=== PATIENT | female | born 1975 | race Caucasian/White ===

== ENCOUNTER → 2019-04-21 | Outpatient (CLI) | payer BC, SELFPAY ==
[2019-03-30 16:37] VITALS: BMI 35.2
[2019-04-21 21:11] LABS: Thyroid Stim Hormone (TSH) 0.94 uIU/mL (0.358-3.74)
[2019-04-22 13:21] VITALS: BMI 35.2
== END | disposition home or self-care (01) ==
LOC: LABSPEC 04-22 15:21
PROVIDERS: Visit Provider Nurse Practitioner
DX: E03.9 Hypothyroidism, unspecified (principal)
CPT/HCPCS: 84443

== ENCOUNTER → 2020-06-05 | Outpatient (CLI) | payer BC, SELFPAY ==
[2020-06-05 16:14] VITALS: BMI 34.9
[2020-06-05 22:40] LABS: Thyroid Stim Hormone (TSH) 0.01 uIU/mL (0.358-3.74)
== END | disposition home or self-care (01) ==
PROVIDERS: PCP Nurse Practitioner; Visit Provider Nurse Practitioner
DX: E03.9 Hypothyroidism, unspecified (principal)
CPT/HCPCS: 84443

== ENCOUNTER → 2020-08-30 | Outpatient (CLI) | payer OTHER, SELFPAY ==
[2020-06-05 16:14] VITALS: BMI 34.9
[2020-08-30 22:32] LABS: Thyroid Stim Hormone (TSH) 0.09 uIU/mL (0.358-3.74)
== END | disposition home or self-care (01) ==
PROVIDERS: PCP Nurse Practitioner; Referring Provider Nurse Practitioner; Visit Provider Nurse Practitioner
DX: E03.8 Other specified hypothyroidism (principal); E06.3 Autoimmune thyroiditis
CPT/HCPCS: 84443

== ENCOUNTER → 2022-04-21 | Outpatient (CLI) | payer BC, SELFPAY ==
--- NOTE | 2022-04-21 13:53 | ECHOD_ITS ---
Reason For Study: HTN Procedure This was a 2D Doppler, Color Flow transthoracic echocardiogram. Exam performed in department. Left Ventricle Normal size and thickness. The left ventricular ejection fraction is 65 %. Normal diastololic function. Right Ventricle Normal right ventricle. Atria The left and right atria are normal. Mitral Valve The mitral valve is structurally normal. No prolapse or stenosis seen. Tricuspid Valve Trivial tricuspid valve insufficiency. Normal pulmonary artery pressure. Aortic Valve Trisinus/trileaflet aortic valve. Trivial aortic valve insufficiency. Pulmonic Valve The pulmonic valve is not well visualized. Trivial eccentric pulmonic valve insufficiency. Great Vessels Normal sized aortic root. Pericardium/Pleural No pericardial effusion. MMode/2D Measurements & Calculations LVIDd: 4.2 cm IVSd: 0.98 cm Ao root diam: 3.5 cm LVIDs: 3.5 cm LVPWd: 0.85 cm LA dimension: 3.2 cm RVDd: 3.0 cm FS: 17.1 % LAV(MOD-bp): 25.4 ml LA A4 area: 12.0 cm2 RA A4 area: 11.1 cm2 LAV(MOD-bp) Indexed: 13.7 ml/m2 LAV(MOD-sp2): 24.9 ml LAV(MOD-sp4): 24.5 ml Time Measurements MV dec time: 0.20 sec Doppler Measurements & Calculations MV E max triston: 68.7 cm/sec Lat Peak E' Triston: 20.5 cm/sec Med Peak E' Triston: 9.0 cm/sec MV A max triston: 75.2 cm/sec E/E' lat: 3.4 E/E' med: 7.6 MV E/A: 0.91 MV V2 max: 74.0 cm/sec MV dec slope: 368.4 cm/sec2 Ao V2 max: 127.6 cm/sec MV max P.2 mmHg Ao max P.5 mmHg MV V2 mean: 43.7 cm/sec Ao V2 mean: 87.4 cm/sec MV mean P.89 mmHg Ao mean P.6 mmHg MV V2 VTI: 20.2 cm Ao V2 VTI: 25.3 cm AV (velocity ratio): 0.94 AI max triston: 425.7 cm/sec LV V1 max: 120.0 cm/sec PA V2 max: 96.4 cm/sec AI max P.5 mmHg LV V1 max P.8 mmHg PA V2 mean: 72.7 cm/sec LV V1 mean P.1 mmHg AI dec slope: 267.2 cm/sec2 LV V1 mean: 82.2 cm/sec AI P1/2t: 466.5 msec LV V1 VTI: 23.7 cm TR max triston: 247.2 cm/sec TR max P.4 mmHg ECHO/Echo Complete Interpretation Summary The left ventricular ejection fraction is 65 %. Ordering Physician: Raysa Tran Referring Physician: Raysa Tran Performed By: Acosta Anthony RCS
== END | disposition home or self-care (01) ==
LOC: CVS 13:50
PROVIDERS: PCP Nurse Practitioner; Referring Provider Internal Medicine Cardiovascular Disease; Visit Provider Internal Medicine Cardiovascular Disease
DX: I10 Essential (primary) hypertension (principal); R00.0 Tachycardia, unspecified
CPT/HCPCS: 93306

== ENCOUNTER → 2022-04-25 | Outpatient (CLI) | payer BC, SELFPAY ==
[2022-04-25 11:51] LABS: Anion Gap 9 (5-15); BUN 10 mg/dL (7-18); BUN/Creat Ratio 9.3 RATIO (10-20); Calcium,Total 9.3 mg/dL (8.5-10.1); Chloride 100 mmol/L (98-107); Cholesterol 214 mg/dL (200); Creatinine, Serum 1.07 mg/dL (0.55-1.02); EST Glomerular Filtration Rate 59 mL/min (>60); Est Glom Filt Rate - Afr Amer 71 mL/min (>60); Glucose 112 mg/dL (74-106); High Density Lipoprotein 70 mg/dL; Potassium 3.2 mmol/L (3.5-5.1); Sodium Level 137 mmol/L (136-145); Triglycerides 113 mg/dL; Very Low Density Lipoprotein 23 mg/dL (5-40)
== END | disposition home or self-care (01) ==
LOC: LAB 10:55
PROVIDERS: PCP Nurse Practitioner; Referring Provider Internal Medicine Cardiovascular Disease; Visit Provider Internal Medicine Cardiovascular Disease
DX: I10 Essential (primary) hypertension (principal); R00.2 Palpitations; E78.00 Pure hypercholesterolemia, unspecified
CPT/HCPCS: 36415; 80048; 80061

== ENCOUNTER → 2022-04-29 | Outpatient (CLI) | payer BC, SELFPAY ==
[2022-04-29 12:57] LABS: Anion Gap 7 (5-15); BUN 9 mg/dL (7-18); BUN/Creat Ratio 9.2 RATIO (10-20); Chloride 102 mmol/L (98-107); Creatinine, Serum 0.98 mg/dL (0.55-1.02); EST Glomerular Filtration Rate 65 mL/min (>60); Est Glom Filt Rate - Afr Amer 79 mL/min (>60); Glucose 110 mg/dL (74-106); Potassium 2.9 mmol/L (3.5-5.1); Sodium Level 139 mmol/L (136-145)
== END | disposition home or self-care (01) ==
PROVIDERS: PCP Nurse Practitioner; Referring Provider Internal Medicine Cardiovascular Disease; Visit Provider Internal Medicine Cardiovascular Disease
DX: E87.6 Hypokalemia (principal); R00.9 Unspecified abnormalities of heart beat; I10 Essential (primary) hypertension
CPT/HCPCS: 36415; 80048; 93225; 93226

== ENCOUNTER → 2022-05-05 | Outpatient (CLI) | payer BC, SELFPAY ==
[2022-05-05 16:03] LABS: Anion Gap 9 (5-15); BUN 11 mg/dL (7-18); BUN/Creat Ratio 10.9 RATIO (10-20); Calcium,Total 9.3 mg/dL (8.5-10.1); Chloride 102 mmol/L (98-107); Creatinine, Serum 1.01 mg/dL (0.55-1.02); EST Glomerular Filtration Rate 63 mL/min (>60); Est Glom Filt Rate - Afr Amer 76 mL/min (>60); Glucose 95 mg/dL (74-106); Potassium 3.2 mmol/L (3.5-5.1); Sodium Level 143 mmol/L (136-145)
== END | disposition home or self-care (01) ==
LOC: LAB 13:29
PROVIDERS: PCP Nurse Practitioner; Referring Provider Internal Medicine Cardiovascular Disease; Visit Provider Internal Medicine Cardiovascular Disease
DX: I10 Essential (primary) hypertension (principal); E87.6 Hypokalemia
CPT/HCPCS: 36415; 80048

== ENCOUNTER → 2022-05-12 | Outpatient (CLI) | payer BC, SELFPAY ==
[2022-05-12 13:58] LABS: Anion Gap 7 (5-15); BUN 11 mg/dL (7-18); BUN/Creat Ratio 12.7 RATIO (10-20); Chloride 108 mmol/L (98-107); Creatinine, Serum 0.87 mg/dL (0.55-1.02); EST Glomerular Filtration Rate 75 mL/min (>60); Est Glom Filt Rate - Afr Amer 91 mL/min (>60); Glucose 70 mg/dL (74-106); Potassium 3.9 mmol/L (3.5-5.1); Sodium Level 140 mmol/L (136-145)
== END | disposition home or self-care (01) ==
LOC: LAB 12:12
PROVIDERS: PCP Nurse Practitioner; Referring Provider Internal Medicine Cardiovascular Disease; Visit Provider Internal Medicine Cardiovascular Disease
DX: E87.6 Hypokalemia (principal)
CPT/HCPCS: 36415; 80048

== ENCOUNTER → 2022-05-22 | Outpatient (CLI) | payer BC, SELFPAY ==
[2022-05-22 15:36] LABS: Potassium 3.8 mmol/L (3.5-5.1)
== END | disposition home or self-care (01) ==
LOC: LAB 13:39
PROVIDERS: PCP Nurse Practitioner; Referring Provider Internal Medicine Cardiovascular Disease; Visit Provider Internal Medicine Cardiovascular Disease
DX: E87.6 Hypokalemia (principal)
CPT/HCPCS: 36415; 84132

== ENCOUNTER → 2022-07-16 | Outpatient (CLI) | payer BC, SELFPAY ==
[2022-07-16 11:57] LABS: Anion Gap 6 (5-15); BUN 13 mg/dL (7-18); Calcium,Total 8.9 mg/dL (8.5-10.1); Chloride 107 mmol/L (98-107); EST Glomerular Filtration Rate 64 mL/min (>60); Est Glom Filt Rate - Afr Amer 77 mL/min (>60); Glucose 95 mg/dL (74-106); Potassium 3.9 mmol/L (3.5-5.1); Sodium Level 139 mmol/L (136-145)
== END | disposition home or self-care (01) ==
LOC: LAB 11:11
PROVIDERS: PCP Nurse Practitioner; Referring Provider Internal Medicine Cardiovascular Disease; Visit Provider Internal Medicine Cardiovascular Disease
DX: I10 Essential (primary) hypertension (principal); E87.6 Hypokalemia
CPT/HCPCS: 36415; 80048

== ENCOUNTER → 2022-09-03 | Outpatient (CLI) | payer BC, SELFPAY ==
[2022-09-03 15:15] LABS: Erythrocyte Sedimentation Rate 7 mm/hr (0-30)
[2022-09-03 15:45] LABS: AST(SGOT) 12 U/L (15-37); Alanine Aminotransfer ALT/SGPT 28 U/L (13-56); Albumin, Serum 3.6 g/dL (3.2-5.0); Alkaline Phosphatase 64 U/L (45-117); Anion Gap 4 (5-15); BUN 9 mg/dL (7-18); BUN/Creat Ratio 8.7 RATIO (10-20); CPK Total, Creatine Kinase 61 U/L (26-192); Calcium,Total 9.1 mg/dL (8.5-10.1); Chloride 108 mmol/L (98-107); Creatinine, Serum 1.03 mg/dL (0.55-1.02); EST Glomerular Filtration Rate 61 mL/min (>60); Est Glom Filt Rate - Afr Amer 74 mL/min (>60); Globulin 3.7 g/dL (2.2-4.2); Glucose 85 mg/dL (74-106); Potassium 3.7 mmol/L (3.5-5.1); Protein, Total 7.3 g/dL (6.4-8.2); Sodium Level 139 mmol/L (136-145)
== END | disposition home or self-care (01) ==
LOC: LAB 14:26
PROVIDERS: PCP Nurse Practitioner; Referring Provider Internal Medicine Cardiovascular Disease; Visit Provider Internal Medicine Cardiovascular Disease
DX: I10 Essential (primary) hypertension (principal); R00.0 Tachycardia, unspecified; M79.10 Myalgia, unspecified site; R00.2 Palpitations; E06.3 Autoimmune thyroiditis; E87.6 Hypokalemia
CPT/HCPCS: 36415; 80053; 82550; 85652

== ENCOUNTER → 2023-04-06 | Outpatient (CLI) | payer BC, SELFPAY ==
--- OUTSIDE RECORDS SUMMARY | 2023-04-06 13:49 | XMS RPT_ITS | CCD ---
Author Name Unknown Address [address] [place] [address] Organization [facility] Care Team Providers Care Cafe Lead Name Role Phone Dav Ray Unavailable UnavailLatisha Moore Unavailable Unavaila JULIEN Fabian Unavailable Unavailable DAV RAY Unavailable Unavailable DAV RAY Unavailable Unavailable Dav Ray Primary Care Provider Dav Ray DO Primary Care Provider [phone] Luis A PUBLIC HEALTH SERVICE OFFICER.ON AIR PERSONALITY, Kenny L Primary Care Provide r Patel PUBLIC HEALTH SERVICE OFFICER.ON AIR PERSONALITY, Kenny L Primary Care Provide r Patel PUBLIC HEALTH SERVICE OFFICER.ON AIR PERSONALITY, Kenny L Primary Care Provide r KANWAL VASQUEZ Referring Unavailable PATEL, KENNY L Primary Care Unavailable KANWAL VASQUEZ Attending Unavailable PTAEL, KENNY L Primary Care Unavailable KEM ESTRADA Referring Unavailabl e PATEL, KENNY L Primary Care Unavailable PEDRO, KARMON Referring Unavailable PATEL, KENNY L Primary Care Unavailable PEDRO, KARLOUIE Attending Unavailable PEDRO, KARMON Referring Unavailable PATEL, KENNY L Primary Care Unavailable PEDRO, KARMON Referring Unavailable PATEL, KENNY L Primary Care Unavailable CHERY ALY Attending Unavail able PEDRO, KARMON Referring Unavailable PATEL, KENNY L Primary Care Unavailable Allergies Allergy Classification Reported Allergen(s) Allergy Type Date of Onset Reaction(s) Facility (2 sources) NSAIDs Propensity to adverse reactions to drug 8 Hives, Itching [facility] Work Phone: (18 sources) Non-steroidal anti-inflammato ry agent; Translations: [NSAIDS (NON-STEROIDAL ANTI-INFLAMMATO RY DRUG)] Drug Allergy 8 Unknown [facility] Medications Current Medications Medication Drug Class(es) Dates Sig (Normalized) Sig (Original) calcipotriene 0.05 mg/ml topical cream (2 sources) Vitamin D Analog calcipotriene (DOVONEX) 0.005 % cream Apply topically daily Apply topically 2 times daily. 0 Active polyethylene glycol 3350 862103 mg / potassium chloride 2980 mg / sodium bicarbonate 6720 mg / sodium chloride 5840 mg / sodium sulfate 19868 mg powder for oral solution (1 source) Osmotic Laxative Start: 11-29-2021 End: 11-29-2021 peg 3350-electrolytes (COLYTE) 240-22.72-6.72 -5.84 gram solution Indications: Special screening for malignant neoplasms, colon Take 4,000 mL by mouth one time only for 1 dose. 4000 mL 0 11/29/2021 11/29/2021 Active Completed/Discontinued Medications Medication Drug Class(es) Dates Sig (Normalized) Sig (Original) atorvastatin 20 mg oral tablet (17 sources) HMG-CoA Reductase Inhibitor Start: 10-08-2020 take 1 tablet by mouth once daily atorvastatin (LIPITOR) 20 mg tablet Indications: Pure hypercholesterolemia Take 1 tablet by mouth once daily. 90 tablet 3 10/08/2020 Active Problems Active Problems Problem Classification Problem Date Documented Date Episodic/Chronic Cardiac dysrhythmias (1 source) Palpitations; Translations: [Palpitations] Episodic Contraceptive and procreative management (6 sources) Patient encounter status; Translations: [Encounter for initial prescription of contraceptive pills] Episodic Disorders of lipid metabolism (17 sources) Hyperlipidemia; Translations: [Hyperlipidemia, unspecified] Onset: 10-07-2020 10-07-2020 Chronic Headache; including migraine (15 sources) Migraine with aura; Translations: [Migraine with aura, not intractable, without status migrainosus] Onset: 10-16-2021 Chronic Melanomas of skin (19 sources) Melanoma in situ by body site (clinical); Translations: [Melanoma in situ, unspecified] Onset: 01-04-2015 01-04-2015 Chronic Nutritional deficiencies (17 sources) Vitamin D deficiency; Translations: [Vitamin D deficiency, unspecified] Onset: 09-17-2020 09-17-2020 Chronic Other female genital disorders (4 sources) Abnormal uterine bleeding; Translations: [Abnormal uterine and vaginal bleeding, unspecified] Chronic Other female genital disorders (1 source) Abnormal uterine and vaginal bleeding, unspecified; Translations: [Abnormal uterine bleeding (AUB)] Onset: 04-04-2022 Chronic Other female genital disorders (1 source) Lesion of vulva; Translations: [Other specified noninflammatory disorders of vulva and perineum] Episodic Other nutritional; endocrine; and metabolic disorders (17 sources) Obese class I; Translations: [Obesity, unspecified] Onset: 09-17-2020 09-17-2020 Chronic Other screening for suspected conditions (not mental disorders or infectious disease) (4 sources) Breast finding ; Translations: [Inconclusive mammogram] Onset: 12-15-2022 Episodic Thyroid disorders (20 sources) Hypothyroidism; Translations: [Hypothyroidism, unspecified] Onset: 09-17-2020 09-17-2020 Chronic Unclassified (2 sources) Shortness of breath / R06.02(ICD-10) Onset: 02-16-2017 Unclassified (2 sources) Oth symptoms and signs involving the circ and resp systems / R09.89(ICD-10) Onset: 02-16-2017 Unclassified (1 source) Dense breast tissue; Translations: [Dense breast tissue] Onset: 12-15-2022 Past or Other Problems Problem Classification Problem Date Documented Date Episodic/Chronic Cancer of cervix (17 sources) Atypical squamous cells of undetermined significance on cervical Papanicolaou smear; Translations: [Atypical squamous cells of undetermined significance on cytologic smear of cervix (ASC-US)] Onset: 03-18-2017 04-09-2017 Episodic Genitourinary symptoms and ill-defined conditions (17 sources) Polyuria; Translations: [Polyuria] Onset: 09-17-2020 09-17-2020 Episodic Lymphadenitis (2 sources) Cervical lymphadenopathy Onset: 01-04-2015 01-04-2015 Episodic Results Test Name Value Interpretation Reference Range Facil ity Vital Signs Date Time Vital Sign Value Performing Clinician Franc valencia 04-24-2022 13:50-0500 Body weight 80.47 kg Kanwal Vasquez MD Work Phone: [facility] 04-24-2022 13:50-0500 Diastolic blood pressure 78 mm[Hg] Kanwal Vasquez MD Work Phone: [facility] 04-24-2022 13:50-0500 Systolic blood pressure 122 mm[Hg] Kanwal Vasquez MD Work Phone: [facility] 04-04-2022 13:55-0500 Body weight 82.64 kg Kanwal Vasquez MD Work Phone: [facility] 04-04-2022 13:55-0500 Diastolic blood pressure 78 mm[Hg] Kanwal Vasquez MD Work Phone: [facility] 04-04-2022 13:55-0500 Systolic blood pressure 110 mm[Hg] Kanwal Vasquez MD Work Phone: [facility] 11-29-2021 13:20-0400 Body height 159 cm Kanwal Vasquez MD Work Phone: [facility] 11-29-2021 13:20-0400 Body weight 82.19 kg Kanwal Vasquez MD Work Phone: [facility] 11-29-2021 13:20-0400 Diastolic blood pressure 80 mm[Hg] Kanwal Vasquez MD Work Phone: [facility] 11-29-2021 13:20-0400 Systolic blood pressure 120 mm[Hg] Kanwal Vasquez MD Work Phone: [facility] 10-15-2021 11:22-0400 Body weight 81.38 kg Kanwal Vasquez MD Work Phone: [facility] 10-15-2021 11:22-0400 Diastolic blood pressure 88 mm[Hg] Kanwal Vasquez MD Work Phone: [facility] 10-15-2021 11:22-0400 Systolic blood pressure 132 mm[Hg] Kanwal Vasquez MD Work Phone: [facility] Encounters Encounter Date Encounter Type Care Provider Facility Start: 12-16-2022 Documentation procedure Mammog rajeev Coordinator [facility] Start: 12-16-2022 Letter encounter Mammography Coordinator [facility] Department Start: 12-15-2022 End: 12-15-2022 ambulatory KANWAL VASQUEZ Facility:[facility] Start: 12-15-2022 End: 12-15-2022 Subsequent hospital visit by physician [facility] Mamm[facility] Procedures Date Procedure Procedure Detail Performing Clinician Start: 12-15-2022 Screening digital br east tomosynthesis bi Kanwal Vasquez MD Work Phone: Start: 04-24-2022 Urine test visual color cmprsn meths Kanwal Vasquez MD Work Phone: Start: 04-10-2022 Us pelvic nonobstetr ic real-time image complete Kanwal Vasquez MD Work Phone: Start: 12-24-2020 Mammography Kanwal paniagua MD Work Phone: Start: 11-30-2020 Lipid 1996 panel - S stephanie or Plasma Mammography Coordinator Start: 09-19-2020 Adult depression scr eening assessment Kanwal Vasquez MD Work Phone: Start: 03-31-2019 Radex shoulder compl ete minimum 2 views Kenny Patel Work Phone: Plan of Treatment Date Care Activity Detail Author Start: 11-29-2026 HPV TESTING HPV TESTING [facility] Start: 11-29-2026 PAP TESTING PAP TESTING [facility] Start: 11-30-2025 Lipid 1996 panel - S stephanie or Plasma Lipid Screening [facility] Start: 11-30-2025 LIPID SCREEN LIPID SCREEN [facility] Start: 04-04-2025 DIABETES SCREEN DIABETES SCREEN [facility] Start: 04-04-2025 Diabetes Screening Diabetes Screenin g [facility] Start: 12-16-2023 Mammography Mammogram Screening [facility] Start: 12-01-2023 DIABETES SCREEN DIABETES SCREEN [facility] Start: 06-29-2023 HPV TESTING HPV TESTING [facility] Start: 06-29-2023 PAP TESTING PAP TESTING [facility] Start: 05-12-2023 Lipid screen Lipid screen [facility] Work Phone: Start: 11-07-2022 Covid-19 Vaccine () Covid-19 Vaccine () [facility] Start: 11-07-2022 Influenza vaccination Influenza Vacc ine (#1) [facility] Start: 04-04-2022 End: 04-04-2023 PELVIC US WHI PELVIC US WHI Anc Imaging Routine Abnormal uterine bleeding (AUB) Expected: 04/04/2022, Expires: 04/04/2023 [facility] Work Phone: Payers Date Payer Category Payer Unknown [employer] PPO OOS [id number] 2021-Present [phone] [address] [place] [address] PPO [id number] 2021 Unknown [id number] 2018 Private Health Insurance [employer] A ETNA xxxxxxxxxx 2018-Present [phone] [address] [place] [address] xxxxxxxxxx [id number] Private Health Insurance [id number] Social History Date Type Detail Facility Start: 05-11-2018 Tobacco smoking stat us [facility] Former smoker [facility] Work Phone: History of tobacco use Cigarette Smoker S [facility] Work Phone: Start: 05-11-2018 End: 04-24-2022 Alcohol intake Current drinker of alcohol (finding) [facility] Work Phone: Start: 01-04-2015 Alcohol Comment occasional [facility] Work Phone: Sex Assigned At Not on file [facility] Work Phone: Start: 01-04-2015 Alcohol Comment occasional [facility] [employer] Work Phone: Start: 10-15-2021 [facility] tobacco [facility] Start: 10-15-2021 Tobacco use and exposure Smokeless tobacco non-user [facility] Start: 03-11-2017 History SDOH Alcohol Comment socially [facility] Start: 1975 Sex Assigned At Female [facility] Start: 10-05-2021 End: 10-15-2021 Exposure to SARS-CoV-2 (event) Not sure [facility] Start: 04-24-2022 End: 12-15-2022 History of Social function [facility] Start: 04-24-2022 End: 12-15-2022 Tobacco use panel [facility] National Score (1-10 0), lower number is lower risk 50 [facility] Start: 09-15-2020 Gender identity Identifies as female gender (finding) [facility] Start: 09-15-2020 Sexual orientation Heterosexual (fin leana) [facility] Clinical Notes 01-04-2015 to 12-16-2022 Letter - Coordinator, Mammography - 12/16/2022 7:03 AM VIVIANTSLatisha vizcarra Mammo Tech - 12/15/2022 12:50 PM EDTTelephone Encounter - Christiane Dejesus RN - 04/29/2022 10:40 AM ESTPatient Instructions Note Date & Type Note Facility 12-16-2022 Miscellaneous Notes December 16, 2022 PID: [id number] Elise Kim [address] [place] [address] Dear Ms. Kim, We are pleased to inform you that the results of your recent breast imaging exam on 12/15/2022 are normal. Your mammogram demonstrates that you have dense breast tissue, which could hide abnormalities. Dense breast tissue, in and of itself, is a relatively common condition. Therefore, this information is not provided to cause undue concern; rather, it is to raise your awareness and promote discussion with your health care provider regarding the presence of dense breast tissue in addition to other risk factors. Early detection of cancer is very important. We also understand recommendations regarding breast cancer screening are controversial. Please discuss with your primary care provider which strategy is best for you and whether a mammogram is right for you. Your imaging studies and report will be kept on file at [facility] as part of your permanent medical record and are available for your continuing care. Thank you for allowing us to help in meeting your health care needs. Sincerely, Dr. Martino Interpreting Radiologist [facility] (Normal over 40) documented in this encounter [facility] 12-15-2022 Note HNO ID: [id number] Author: Latisha Perry Mammo Tech Service: ? Author Type: Finish Sander Type: Progress Notes Filed: 12/15/2022 1:17 PM Note Text: Radiology Service Progress Note PATIENT NAME: Elise Kim DATE OF SERVICE: December 15, 2022 TIME: 12:59 PM PATIENT IDENTITY VERIFICATION COMPLETED USING TWO (2) IDENTIFIERS: Name and Date of confirmed by patient verbally. FALL SCREENING: Has the patient had 2 falls in the last year or 1 fall with injury or currently using an Ambulatory Assistive Device (Walker, Cane, Wheelchair, Crutches, etc.)? No PATIENT GENDER DATA: Female. status: : No status: NO. PATIENT RELEVANT IMPLANT DATA REVIEWED: Not Applicable RADIOLOGY DEPARTMENT: Mammography PERIPHERAL IV DATA: Not applicable SIGNED BY: Dawna Villagomez December 15, 2022 12:59 PM [facility] 12-15-2022 History of Presen t illness Narrative Radiology Service Progress Note PATIENT NAME: Elise Kim DATE OF SERVICE: December 15, 2022 TIME: 12:59 PM PATIENT IDENTITY VERIFICATION COMPLETED USING TWO (2) IDENTIFIERS: Name and Date of confirmed by patient verbally. FALL SCREENING: Has the patient had 2 falls in the last year or 1 fall with injury or currently using an Ambulatory Assistive Device (Walker, Cane, Wheelchair, Crutches, etc.)? No PATIENT GENDER DATA: Female. status: : No status: NO. PATIENT RELEVANT IMPLANT DATA REVIEWED: Not Applicable RADIOLOGY DEPARTMENT: Mammography PERIPHERAL IV DATA: Not applicable SIGNED BY: Dawna Villagomez December 15, 2022 12:59 PM documented in this encounter [facility] 04-29-2022 Miscellaneous Notes Patient called in regards to MyChart refill request we received for Valtrex. Patient states she started with outbreak symptoms yesterday. Last seen in office on 04/24/22 for IUD insertion. Pharmacy is up to date, will only call patient back if there is a problem. Christiane Dejesus RN documented in this encounter [facility] 04-24-2022 Note HNO ID: [id number] Author: Kanwal Vasquez MD Service: ? Author Type: Physician Type: Progress Notes Filed: 04/24/2022 2:30 PM Note Text: I was present during the patient's physical exam by Dr. Vasquez. [facility] Elise presents today for EMB AND IUD insertion for dysmenorrhea, menstrual dysfunction. Patient's last menstrual period was 03/29/2022 (approximate). GC/chlamydia: Not done: no risk factors and/or patient declines screening test: negative Side effects including irregular bleeding were discussed with the patient. The patient understands that it should be removed in 8 years or sooner if the patient desires a . IUD source: office provided IUD lot #: [id number] Exp date: 06/06/24 UNIVERSAL PROTOCOL / SAFETY CHECKLIST Procedure to be Performed: Endometrial Biopsy and Intrauterine Device (IUD) insertion Mirena Sign In: A Moment of CARE was completed. Personnel directly involved with the procedure wore the appropriate PPE (Personal Protective Equipment). Patient/Surrogate Stated/Verified: PATIENT VERIFIED(optional for EMERGENT procedures): Patient name, Date of , Relevant allergies, and The intended procedure Time Out Communication: Intended patient and procedure match the source documents. Consent documented and matches the intended procedure. Implant(s) inserted: Correct implant(s) confirmed including size and side. and Expiration date(s) reviewed. Sign Out: SIGN OUT (optional for EMERGENT procedures): All specimen containers correctly labeled. All instruments, equipment, possible retained foreign bodies accounted for. Post-procedure follow-up management communicated and Plan of Care Visit completed when applicable. PROCEDURE: EXTERNAL GENITALIA: Normal in appearance without lesions VAGINA: Normal in appearance without lesions PROCEDURE: The cervix was prepped with betadine. Anterior lip of cervix grasped with single toothed tenaculum. Cervix was dilated gently. Pipelle inserted into the uterus without difficulty (uterus sounded to 8.5cm) and endometrial biopsy obtained. Specimen labeled and sent to pathology. The uterus is Anteverted. Using sterile technique, the Mirena IUD was inserted. String was cut to 3cm from the external os of the cervix. Hemostasis obtained. Patient tolerated procedure well. PLAN: Patient was advised to observe for signs and symptoms of infection including but not limited to fever, malodorous vaginal discharge and/or pain. The patient was told to check the string monthly for accurate placement. Bleeding expectations were reviewed. Follow up for next annual exam or sooner as needed. Kanwal Vasquez MD [facility] 04-24-2022 History of Presen t illness Narrative I was present during the patient's physical exam by Dr. Vasquez. Jennifer Chasehel presents today for EMB & IUD insertion for dysmenorrhea, menstrual dysfunction. Patient's last menstrual period was 03/29/2022 (approximate). GC/chlamydia: Not done: no risk factors and/or patient declines screening test: negative Side effects including irregular bleeding were discussed with the patient. The patient understands that it should be removed in 8 years or sooner if the patient desires a . IUD source: office provided IUD lot #: [id number] Exp date: 06/06/24 UNIVERSAL PROTOCOL / SAFETY CHECKLIST Procedure to be Performed: Endometrial Biopsy and Intrauterine Device (IUD) insertion Mirena Sign In: A Moment of CARE was completed. Personnel directly involved with the procedure wore the appropriate PPE (Personal Protective Equipment). Patient/Surrogate Stated/Verified: PATIENT VERIFIED(optional for EMERGENT procedures): Patient name, Date of , Relevant allergies, and The intended procedure Time Out Communication: Intended patient and procedure match the source documents. Consent documented and matches the intended procedure. Implant(s) inserted: Correct implant(s) confirmed including size and side. and Expiration date(s) reviewed. Sign Out: SIGN OUT (optional for EMERGENT procedures): All specimen containers correctly labeled. All instruments, equipment, possible retained foreign bodies accounted for. Post-procedure follow-up management communicated and Plan of Care Visit completed when applicable. PROCEDURE: EXTERNAL GENITALIA: Normal in appearance without lesions VAGINA: Normal in appearance without lesions PROCEDURE: The cervix was prepped with betadine. Anterior lip of cervix grasped with single toothed tenaculum. Cervix was dilated gently. Pipelle inserted into the uterus without difficulty (uterus sounded to 8.5cm) and endometrial biopsy obtained. Specimen labeled and sent to pathology. The uterus is Anteverted. Using sterile technique, the Mirena IUD was inserted. String was cut to 3cm from the external os of the cervix. Hemostasis obtained. Patient tolerated procedure well. PLAN: Patient was advised to observe for signs and symptoms of infection including but not limited to fever, malodorous vaginal discharge and/or pain. The patient was told to check the string monthly for accurate placement. Bleeding expectations were reviewed. Follow up for next annual exam or sooner as needed. Kanwal Vasquez MD documented in this encounter [facility] 04-24-2022 Instructions Jennifer Main Ma - 04/24/2022 1:41 PM EST POST IUD INSTRUCTIONS You may have irregular bleeding during the first 3 months of use. You may have mild-severe cramping for the next 48 hours. You may use over the counter medication (Motrin, Tylenol) as needed. Your IUD must be removed or replaced based on the following table: IUD Type Removed or replaced within: Ana 3 years Kyleena 5 years Mirena 8 years Paragard 10 years Call my office for signs/symptoms of infection such as severe cramping, fever, or unusual bleeding. Check for string placement as instructed by your doctor. If you have any additional questions, please contact the office. documented in this encounter [facility] 04-04-2022 Note HNO ID: [id number] Author: Kanwal Vasquez MD Service: ? Author Type: Physician Type: Progress Notes Filed: 04/04/2022 2:55 PM Note Text: Music Teacher offered: Patient declines.' Elise Kim is a 46 year old female who presents for problem visit. HPI: Patient presents with irregular menses. She reports 2 menses in February. The 2nd lasted into March. Menses started again 19 days later which was this past Thursday. She is passing blood clots but states flow isn't really heavy. Also she feels bloating, cramping AND occ sharp pain. Also she feels that her heart is racing. Denies CP/SOB. Patient takes the micronor at the same time every day. OB History T0 L2 SAB0 IAB0 Ectopic0 Multiple0 Live Births0 Principal Clerk History LMP: 03/29/2022 (Approximate), Having periods Age at Menarche: Age at First : Age at Menopause: Principal Clerk History Comments: Sexual Activity: Yes; Male Contraception: No contraception data on record PAST MEDICAL HISTORY Diagnosis Date Herpes, genital Hypothyroid Left cervical lymphadenopathy 01/04/2015 Thyroid with heterogeneity but no nodules on US in 01/2015. Melanoma in situ (HCC) Right Rib cage Migraines No past surgical history on file. FAMILY HISTORY Problem Relation Age of Onset Hypertension Mother Thyroid Mother Hypertension Sister Thyroid Sister Thyroid Sister Thyroid Sister Breast Cancer No Family History Ovarian cancer No Family History Uterine Cancer No Family History Social History Tobacco Use Smoking status: Never Smokeless tobacco: Never Vaping Use Vaping Use: Never used Substance Use Topics Alcohol use: Yes Comment: socially Drug use: No Current Outpatient Medications Medication Sig levothyroxine (LEVOXYL) 137 mcg tablet Take 1 tablet by mouth once daily. valACYclovir (VALTREX) 1 gram Take 1 tablet by mouth once daily. cholecalciferol, vitamin D3, (VITAMIN D3) 100 mcg (4,000 unit) cap Take 1 capsule by mouth once daily. loratadine 10 mg cap Take 1 tablet by mouth once daily. magnesium oxide 400 mg magnesium cap Take 1 tablet by mouth daily at bedtime. montelukast (SINGULAIR) 10 mg tablet Take 10 mg by mouth once daily. Norethindrone, Contraceptive, (ORTHO MICRONOR) 0.35 mg tablet Take 1 tablet by mouth once daily. atorvastatin (LIPITOR) 20 mg tablet Take 1 tablet by mouth once daily. No current facility-administered medications for this visit. Allergies As of Date: 04/04/2022 Allergen Noted Reaction NSAIDS (NON-STEROIDAL ANTI-INFLAM*10/12/2017 Unknown Fully Assessed 04/04/2022 Allergies and current medication updated:Yes EXAM: BP 110/78 Wt 182 lb 3.2 oz (82.6kg) LMP 03/29/2022 GENERAL: pleasant, female in no apparent distress PELVIC: deferred ASSESSMENT AND PLAN: 46yo female with AUB AND heart palpitations Check pelvic US Discussed treatment options including Mirena IUD CBC AND CMP ordered Reviewed CP/SOB precautions Medical Decision Making: Problems: Moderate: New problem with uncertain prognosis Data: Unique test(s) ordered: 3+ Risk: Moderate: Drug management Medical Decision Making Level: 4 - Moderate Kanwal Vasquez MD [facility] 04-04-2022 History of Presen t illness Narrative Music Teacher offered: Patient declines.' Elise Kim is a 46 year old female who presents for problem visit. HPI: Patient presents with irregular menses. She reports 2 menses in February. The 2nd lasted into March. Menses started again 19 days later which was this past Thursday. She is passing blood clots but states flow isn't really heavy. Also she feels bloating, cramping & occ sharp pain. Also she feels that her heart is racing. Denies CP/SOB. Patient takes the micronor at the same time every day. OB History T0 L2 SAB0 IAB0 Ectopic0 Multiple0 Live Births0 Principal Clerk History LMP: 03/29/2022 (Approximate), Having periods Age at Menarche: Age at First : Age at Menopause: Principal Clerk History Comments: Sexual Activity: Yes; Male Contraception: No contraception data on record PAST MEDICAL HISTORY Diagnosis Date Herpes, genital Hypothyroid Left cervical lymphadenopathy 01/04/2015 Thyroid with heterogeneity but no nodules on US in 01/2015. Melanoma in situ (HCC) Right Rib cage Migraines No past surgical history on file. FAMILY HISTORY Problem Relation Age of Onset Hypertension Mother Thyroid Mother Hypertension Sister Thyroid Sister Thyroid Sister Thyroid Sister Breast Cancer No Family History Ovarian cancer No Family History Uterine Cancer No Family History Social History Tobacco Use Smoking status: Never Smokeless tobacco: Never Vaping Use Vaping Use: Never used Substance Use Topics Alcohol use: Yes Comment: socially Drug use: No Current Outpatient Medications Medication Sig levothyroxine (LEVOXYL) 137 mcg tablet Take 1 tablet by mouth once daily. valACYclovir (VALTREX) 1 gram Take 1 tablet by mouth once daily. cholecalciferol, vitamin D3, (VITAMIN D3) 100 mcg (4,000 unit) cap Take 1 capsule by mouth once daily. loratadine 10 mg cap Take 1 tablet by mouth once daily. magnesium oxide 400 mg magnesium cap Take 1 tablet by mouth daily at bedtime. montelukast (SINGULAIR) 10 mg tablet Take 10 mg by mouth once daily. Norethindrone, Contraceptive, (ORTHO MICRONOR) 0.35 mg tablet Take 1 tablet by mouth once daily. atorvastatin (LIPITOR) 20 mg tablet Take 1 tablet by mouth once daily. No current facility-administered medications for this visit. Allergies As of Date: 04/04/2022 Allergen Noted Reaction NSAIDS (NON-STEROIDAL ANTI-INFLAM*10/12/2017 Unknown Fully Assessed 04/04/2022 Allergies and current medication updated:Yes EXAM: BP 110/78 Wt 182 lb 3.2 oz (82.6kg) LMP 03/29/2022 GENERAL: pleasant, female in no apparent distress PELVIC: deferred ASSESSMENT AND PLAN: 46yo female with AUB & heart palpitations Check pelvic US Discussed treatment options including Mirena IUD CBC & CMP ordered Reviewed CP/SOB precautions Medical Decision Making: Problems: Moderate: New problem with uncertain prognosis Data: Unique test(s) ordered: 3+ Risk: Moderate: Drug management Medical Decision Making Level: 4 - Moderate Kanwal Vasquez MD documented in this encounter [facility] 12-16-2021 Miscellaneous Notes Patient does not want to schedule colonoscopy until late Spring / Summer of 2022, gave her our direct line. Cancelled request until time being. Please place a new order when patient is ready to schedule, thanks! DANICA 12/16 documented in this encounter [facility] 12-02-2021 Miscellaneous Notes [employer] message sent with alert if not read. Closed Call and tell to increase levothyroxine from 0.125 mg to 0.137 mg daily. Check TSH again in 6-8 weeks (in Epic for on or after 01/12/2022). Thanks. The following approved medication requests have been transmitted electronically. Requested Prescriptions Signed Prescriptions Disp Refills levothyroxine (LEVOXYL) 137 mcg tablet 90 tablet 3 Sig: Take 1 tablet by mouth once daily. Authorizing Provider: KEM ESTRADA MD documented in this encounter [facility] 11-29-2021 History of Presen t illness Narrative TR OPEN ACCESS QUESTIONNAIRE 1. Are you currently having any new or unusual stomach/gastrointestinal issues at this time such as constipation, diarrhea, abdominal pain, rectal bleeding etc?No 2. Do you have any difficulty swallowing? No 3. Do you have any implanted devices such as a defibrillator, pacemaker, cardiac stents or deep brain stimulator? No 4. Do you take any Blood thinners such as Coumadin, Plavix, Xarelto, Eliquis, Brilinta or any other blood thinner? No 5. Do you have any new or past cardiac (heart) or pulmonary (lung) issues? No 6. Do you currently use any oxygen? No 7. Have you been hospitalized in the past 6 weeks? No 8. Have you had difficulty with anesthesia previously re: Difficult intubation? No Other difficulty or allergic reaction to anesthesia other than post op N/V? No 9. Are you on dialysis? No 10. Do you have any bleeding disorders such as hemophilia or Factor 5? No 11. Are you an Insulin Dependent Diabetic? No IF ANY OF THE TOP ELEVEN QUESTIONS ARE ANSWERED YES PLEASE SCHEDULE THE PATIENT FOR A CONSULT. N/A 12. Is the patient's BMI 40 or greater? No:Body mass index is 32.51 kg/m .. 13. Do you take any narcotics or anti-Anxiety medications? No 14. Do you use any illegal or recreational drugs including marijuana? No 15. Any alcohol use: YES: What type of alcohol, how much and how often do you drink? : wine, cider, a bottle on the weekends 16. Have you been diagnosed with chronic liver disease such as hepatitis or cirrhosis? No 17. Do you have a seizure disorder? No 18. Do you have ulcerative colitis or Crohn's disease? No 19. Are you or could you be ? No 20. Any other important health information we should be made aware of prior to your colonoscopy? No To be completed by LIP: Did patient have MAC anesthesia with a previous endoscopy procedure? No Patient appropriate for Open Access Colonoscopy: Yes: appropriate for Open Access Procedure Checklist: Prior to closing the encounter: Complete questionnaire: Yes Confirm Prep order has been Ordered/Pended: Yes. Patient's procedure could be delayed if not given the script for the prep. Please ensure the prep is escripted to pharmacy or printed. Instructions for the prep will print upon filing or pending this smartset. Please send all open access questionnaires to [facility] Sched Pool #[id number] Music Teacher offered: Patient declines.] Elise is a 46 year old who presents for an annual gynecologic exam without complaints. Menses: cycles every 28-30 days and 4 days of flow. Contraception: micronor HPV vaccine: No Last Pap: 07/06/2018 normal HPV: 06/30/2018 negative History of abnormal pap: Yes - ASCUS with positive HRHPV in 2017 Last mammogram: 2020normal OB History T0 L2 SAB0 IAB0 Ectopic0 Multiple0 Live Births0 Principal Clerk History LMP: 11/04/2021 (Approximate), Having periods Age at Menarche: Age at First : Age at Menopause: Principal Clerk History Comments: Sexual Activity: Yes; Male Contraception: No contraception data on record PAST MEDICAL HISTORY Diagnosis Date Hypothyroid Left cervical lymphadenopathy 01/04/2015 Thyroid with heterogeneity but no nodules on US in 01/2015. Melanoma in situ (HCC) Right Rib cage Migraines History reviewed. No pertinent surgical history. FAMILY HISTORY Problem Relation Age of Onset Hypertension Mother Thyroid Mother Hypertension Sister Thyroid Sister Thyroid Sister Thyroid Sister Breast Cancer No Family History Ovarian cancer No Family History Uterine Cancer No Family History SOCIAL HISTORY Social History Tobacco Use Smoking status: Never Smokeless tobacco: Never Vaping Use Vaping Use: Never used Substance Use Topics Alcohol use: Yes Comment: socially Drug use: No REVIEW OF SYSTEMS Abdomen: No abdominal pain, nausea, vomiting, diarrhea, or constipation. No bloating, early satiety, indigestion, or increased flatulence. Bladder: No dysuria, gross hematuria, urinary frequency, urinary urgency, or incontinence. Breast: No breast lumps, nipple d/c, overlying skin changes, redness or skin retraction. Allergies and current medication updated:Yes EXAM: BP 120/80 Ht 5' 2.598 (1.59m) Wt 181 lb 3.2 oz (82.2kg) LMP 11/04/2021 BMI 32.51 kg/(m^2). GENERAL: pleasant, female in no apparent distress BREAST: soft, non-tender, symmetric, no dominant mass, normal nipple-areolar complex, no lymphadenopathy, and no nipple discharge CHEST: Normal inspiratory effort ABDOMEN: soft, non-tender, and no masses PELVIC: external genitalia normal, normal Bartholin's glands, urethra, [place]'s glands, no vulvar lesions, no cervical lesions, good vaginal support, physiologic discharge present, normal appearing perineal body and perianal region BIMANUAL: uterus normal size, shape and consistency, no adnexal masses, and non-tender RECTOVAGINAL: deferred. NEURO: alert and oriented x3,exam grossly non-focal EXTREMITIES: normal ASSESSMENT/PLAN: 1) Health maintenance: Pap done with HPV. Mammogram ordered. Nutrition, exercise and routine health maintenance exams reviewed. Colonoscopy referral placed 2) Contraception: Progestin - only contraceptives - reviewed increased failure rate. Contraceptive options reviewed and information provided. 3) STD screening: Declined STD check. 4) Follow up one year or sooner as needed Kanwal Vasquez MD documented in this encounter [facility] 11-29-2021 Instructions Terese Suggs MA - 11/29/2021 1:33 PM EDT Images from the original note were not included. Health Information For Patients and the Community How to Prepare for Your Colonoscopy Using Golytely, Nulytely, Trilyte or Colyte Preparations IMPORTANT - Please Read These Instructions at Least 2 Weeks Before Your Colonoscopy Rodriguez Instructions: ?Your bowel must be empty so that your doctor can clearly view your colon. Follow all of the instructions in this handout EXACTLY as they are written. If you do NOT follow the directions for when to start drinking the bowel preparation (see next page), your colonoscopy WILL be cancelled. ?Do NOT eat any solid food the ENTIRE day before your colonoscopy. ?Buy your bowel preparation at least 5 days before your colonoscopy. ?Do NOT mix the solution until the day before your colonoscopy. Designated Clinical Services Consultant on the Day of Your Exam A responsible family member or friend MUST come with you to your colonoscopy and REMAIN in the endoscopy area until you are discharged! You are NOT ALLOWED to drive, take a taxi or bus, or leave the Endoscopy Center ALONE. If you do not have a responsible funeral car driver (family member or friend) with you to take you home, your exam cannot be done with sedation and will be cancelled. Medications Some of the medicines you take may need to be stopped or adjusted before your colonoscopy. You MUST call the doctor who ordered any of the following medicines at least 2 weeks before your colonoscopy. ?Blood thinners -- such as Coumadin (warfarin), Plavix (clopidogrel), Ticlid (ticlopidine hydrochloride), Agrylin (anagrelide), Xarelto (Rivaroxaban), Pradaxa (Dabigatran), Eliquis (Apixaban), and Effient (Prasugrel). ?Insulin or diabetes pills. Please call the doctor that monitors your glucose levels. Your insulin dosage may need to be adjusted due to the diet restrictions required with this bowel preparation. (Please bring your diabetes medicines with you on the day of your procedure.) If you take aspirin, take it and ALL other medications prescribed by your doctor. On the day of your colonoscopy, take your medications with a sip of water. Revised 04/2016 1 Five (5) Days Before Your Colonoscopy ?Do NOT take medicines that stop diarrhea -- such as Imodium , Kaopectate , or Pepto Bismol . ?Do NOT take fiber supplements -- such as Metamucil , Citrucel , or Perdiem . ?Do NOT take products that contain iron -- such as multi-vitamins -- (the label lists what is in the products). ?Do NOT take vitamin E. Buy the prescription bowel preparation solution at your local pharmacy or drugstore pharmacy. Three (3) Days Before Your Colonoscopy Do NOT eat high-fiber foods -- such as popcorn, beans, seeds (flax, sunflower, quinoa), multigrain bread, nuts, salad/vegetables, or fresh and dried fruit. One (1) Day Before Your Colonoscopy Only drink clear liquids the ENTIRE DAY before your colonoscopy. Do NOT eat any solid foods. Drink at least 8 ounces of clear liquids every hour after waking up. The clear liquids you can drink include: ?water, apple, or white grape juice; broth; coffee or tea (without milk or creamer); clear carbonated beverages such as joni troy or lemon-[place] soda; Gatorade or other sports drinks (not red); Joel-Aid or other flavored drinks (not red). You may eat plain jello or other gelatins (not red) or popsicles (not red). Do NOT drink alcohol on the day before or the day of the procedure. 2 Revised 04/2016 When to Mix and Drink Your Bowel Prep Follow the instructions on the label. After mixing, place the solution in the refrigerator for a couple of hours before drinking. You may add the flavor packet that came with the bowel preparation. DO NOT add ice, sugar or any flavorings to the solution. Evening Before Your Colonoscopy ?Start drinking the bowel preparation at 6 PM the evening before your colonoscopy. Drink an 8-oz glass of bowel preparation every 10 minutes. You must finish drinking the solution by 9 PM the night before your scheduled procedure. ?You may continue to drink clear liquids only until midnight. Do NOT eat or drink ANYTHING after midnight the night before your procedure or your procedure may be cancelled. This is for your safety and will reduce the risk of having any food or liquid in your stomach move into your lungs (aspiration) during a procedure. If you take aspirin, take it and ALL other prescribed medicines with a sip of water on the day of your colonoscopy. Contact Information: If you are unable to keep your appointment or have any questions about the instructions, please call the facility where the procedure is being performed. Call between the hours of 8:00 AM and 5:00 PM. If you are calling after 5:00 PM, please call Nurse promotion officer at [phone]. [facility] [address] [place] [address] [id number] Index # [id number] Revised 04/2016 3 Colonoscopy Procedure Overview Please Read Prior to the Procedure What is a Colonoscopy A colonoscopy is an outpatient procedure in which the inside of the large intestine (colon and rectum) is examined. A colonoscopy is commonly used to evaluate gastrointestinal symptoms, such as rectal and intestinal bleeding, abdominal pain, or changes in bowel habits. Colonoscopies are also performed in individuals without symptoms to check for colorectal polyps or cancer. A screening colonoscopy is recommended for anyone 50 years of age and older, and for anyone with parents, siblings or children with a history of colorectal cancer or polyps. What Happens Before a Colonoscopy To have a successful colonoscopy, your bowel must be empty so that your physician can clearly view the colon. To do this, it is very important to read and follow all of the instructions given to you at least 2 weeks BEFORE your exam. If your bowel is not empty, your colonoscopy will not be successful and may have to be repeated. If you feel nauseated or vomit while taking the bowel preparation, wait 30 minutes before drinking more fluid and start with small sips of solution. Some activity (such as walking) or a few soda crackers may help decrease the nausea you are feeling. If the nausea persists, please contact nurse literacy education professor at [phone]. You may experience skin irritation around the anus due to the passage of liquid stools. To prevent and treat skin irritation, you should: ?Apply Vaseline or Desitin ointment to the skin around the anus before drinking the bowel preparation medications. These products can be purchased at any drugstore. ?Wipe the skin after each bowel movement with disposable wet wipes instead of toilet paper. These are found in the toilet paper area of the store. ?Sit in a bathtub filled with warm water for 10 to 15 minutes after you finish passing a stool; after soaking, blot the skin dry with a soft cloth, apply Vaseline or Desitin ointment to the anal area, and place a cotton ball just outside your anus to absorb leaking fluid. What Happens During a Colonoscopy During a colonoscopy, an experienced physician uses a colonoscope (a long, flexible instrument about 1/2 inch in diameter) to view the lining of the colon. The colonoscope is inserted into the rectum and advanced through the large intestine. If necessary during a colonoscopy, small amounts of tissue can be removed for analysis (a biopsy) and polyps can be identified and entirely removed. In many cases, a colonoscopy allows accurate diagnosis and treatment of colorectal problems without the need for a major operation. Revised 04/2016 5 ?You are asked to wear a hospital gown and an IV will be started. ?You are given a pain reliever and a sedative intravenously (in your vein). You will feel relaxed and somewhat drowsy. ?You will lie on your left side, with your knees drawn up towards your chest. ?A small amount of air is used to expand the colon so the physician can see the colon arellano. ?You may feel mild cramping during the procedure. Cramping can be reduced by taking slow, deep breaths. ?The colonoscope is slowly withdrawn while the lining of your bowel is carefully examined. ?The procedure lasts from 30 minutes to 1 hour. What Happens After a Colonoscopy ?You will stay in a recovery room for observation until you are ready for discharge. ?You may feel some cramping or a sensation of having gas, but this quickly passes. ?If sedation has been given, a responsible family member or friend must drive you home. ?Avoid alcohol, driving, and operating machinery for 24 hours following the procedure. ?Unless otherwise instructed, you may immediately return to your normal diet. We recommend you wait until the day after your procedure to resume normal activities. ?If polyps were removed or a biopsy was taken, the physician performing your colonoscopy will tell you when it is safe to resume taking your blood thinners. ?If a biopsy was taken or a polyp was removed, you may notice a little amount of rectal bleeding for 1 to 2 days after the procedure. If you have a large amount of rectal bleeding, high or persistent fevers, or severe abdominal pain within the next 2 weeks, please go to your local emergency room and call the physician who performed your exam. 6 Revised 04/2016 Copyright 7310-9332 [facility]. All rights reserved. Revised 04/2016 Miralax/Dulcolax Bowel Prep For this bowel preparation, you will need to purchase the following medications at any pharmacy: Over the counter Miralax (generic name is polyethylene glycol) 8.3 oz or 238 grams Four (4) Dulcolax (generic name is Bisacodyl) tablets 3 days prior to your procedure, you need to be on a low fiber diet (Such as popcorn, beans, seeds, nuts, salad and raw vegetables, corn, fresh and dried fruit and multi-grain bread) YOU MUST BE ON CLEAR LIQUIDS FOR 2 FULL DAYS PRIOR TO YOUR COLONOSCOPY Day one which would be two days before your colonoscopy, you will need to be on clear liquids all day. You may have coffee or tea-black only (no cream), clear broths (beef, chicken or vegetable), apple juice, white grape juice, pop, Gatorade, Powerade, lemonade, Jello, popsicles, Joel-aid, and water-But nothing red or dark purple in color and no dairy products, tomato or orange juices. Day two which would be the day before your colonoscopy continue clear liquids all day as above. And follow the instructions below: 8:00 AM - Mix the Miralax with 64 oz of Gatorade or another clear liquid of choice and place in refrigerator. Most people say the drink is better cold. 4:00 PM - Take 2 of the Dulcolax tablets with 8 oz of water. 6:00 PM - Start to drink the Miralax mixture. You must finish it by midnight. 8:00 PM - Take the other 2 Dulcolax tablets with 8 oz of water. You may continue to drink clear liquids while you are taking your prep and after you finish it as long as it is before midnight. Drink lots of fluids so you don t become dehydrated. Nothing to drink after midnight the night before the procedure unless you are instructed differently by the physician or nurses. Please remember to take your normal medications the morning of the procedure with a small sip of water especially your blood pressure medications. If you are diabetic, you need to contact your physician about how to take your diabetic medications and/or insulin during the prepping period and the day of your procedure. Any questions please call: Dr. Gil or Dr. Mg [phone] Jovanna Hamlin [phone] Dr. De Los Santos [phone] [facility] nurses [phone] documented in this encounter [facility] 10-18-2021 Miscellaneous Notes Below message sent to patient via [employer] message. Closed. Call and tell to increase levothyroxine from 0.1 mg to 0.125 mg daily. Check TSH again in 6-8 weeks (in Epic for on or after 11/29/2021). Thanks. The following approved medication requests have been transmitted electronically. Requested Prescriptions Signed Prescriptions Disp Refills levothyroxine (SYNTHROID) 125 mcg tablet 90 tablet 3 Sig: Take 1 tablet by mouth once daily. Authorizing Provider: KEM ESTRADA MD 3rd attempt: Called patients home and left VM to call back office at [phone]. Please give message below. Call placed and voicemail left to call office or if able can go to my chart if easier for question RE dose of levothyroxine Please inquire with patient is she taking levothyroxine 0.1 mg every day? 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 I will send in Valtrex for her to start and she can discuss future plans with PILLO at her appointment next week. Destiny Rodriguez APRN.CNP documented in this encounter [facility] 10-16-2021 History of Presen t illness Narrative VIRTUAL VISIT PROGRESS NOTE This is a virtual visit using [employer] video visit. It required patient-provider interaction for the medical decision making as documented below. Elise Kim is a 45 year old female seen for control. Regular cycle, light flow, lasting 3 day Some months more bloating, cramping, does get migraine with aura LMP 09/29 HISTORY REVIEWED (electronic chart updated): PAST MEDICAL HISTORY Diagnosis Date Hypothyroid Left cervical lymphadenopathy 01/04/2015 Thyroid with heterogeneity but no nodules on US in 01/2015. Melanoma in situ (HCC) Right Rib cage Migraines No past surgical history on file. FAMILY HISTORY Problem Relation Age of Onset Hypertension Mother Thyroid Mother Hypertension Sister Thyroid Sister Thyroid Sister Thyroid Sister Breast Cancer No Family History Ovarian cancer No Family History Uterine Cancer No Family History Social History Tobacco Use Smoking status: Never Smokeless tobacco: Never Vaping Use Vaping Use: Never used Substance Use Topics Drug use: No Current Outpatient Medications Medication Sig levothyroxine (SYNTHROID) 100 mcg tablet Take 1 tablet by mouth once daily. atorvastatin (LIPITOR) 20 mg tablet Take 1 tablet by mouth once daily. cholecalciferol, vitamin D3, (VITAMIN D3) 100 mcg (4,000 unit) cap Take 1 capsule by mouth once daily. loratadine 10 mg cap Take 1 tablet by mouth once daily. magnesium oxide 400 mg magnesium cap Take 1 tablet by mouth daily at bedtime. montelukast (SINGULAIR) 10 mg tablet Take 10 mg by mouth once daily. triamcinolone acetonide (NASACORT AQ) 55 mcg nasal inhaler Use 1 [place] in each nostril twice daily. (Patient not taking: Reported on 10/15/2021) No current facility-administered medications for this visit. ALLERGIES Allergen Reactions Nsaids (Non-Steroid* Unknown REVIEW OF SYSTEMS: GENERAL: feeling well without fatigue PHYSICAL EXAMINATION: VIDEO EXAM: (if completed, performed via video enabled technology) No exam performed ASSESSMENT/PLAN: 1. Encounter for initial prescription of contraceptive pills - ICD9: V25.01, ICD10: Z30.011 (primary diagnosis) - RX for Micronor given today. - discussed with patient on how to take OCP's. - counseled on benefits, risks and possible severe side effects of OCP's. - discussed need to use Condoms to help to prevent STD's including HIV etc. 2. Migraine with aura and without status migrainosus, not intractable - ICD9: 346.00, ICD10: G43.109 I spent a total of 30 minutes on the date of the service which included preparing to see the patient, [id number] patient care, completing clinical documentation, obtaining and/or reviewing separately obtained history, counseling and educating the patient/family/caregiver, and ordering medications, tests, or procedures Destinyraymond Rodriguez APRN.CNP documented in this encounter [facility] 10-15-2021 Miscellaneous Notes I was not aware that she wanted to discuss control at her visit today or I would have been happy to do that. She needs a visit to discuss control before any medication can be prescribed. Estrogen containing medications have increased risks in women over 35 and are contraindicated in several situations. She could do a 30 minute virtual visit with Destiny Rodriguez tomorrow or with me on Thursday. Thanks! Kanwal Vasquez MD I called patient and explained today was a problem visit. Patient states she wanted to have an annual today and be prescribed control pills. She states she was last on control pills as a teenager. Most recently had IUD and does not want IUD. I explained to patient that Dr Vasquez would need to do counseling before prescribing any control. I scheduled patient for an an annual 10/25. Patient still wants me to ask Dr Vasquez to prescribe OCP prior to her appointment. documented in this encounter [facility] 10-15-2021 Miscellaneous Notes Addended by: JENNIFER MAIN MA on: 10/15/2021 01:34 PM Modules accepted: Orders documented in this encounter [facility] 10-15-2021 History of Presen t illness Narrative Elise Kim is a 45 year old female who presents for concerns. HPI: Patient presents with vulvar rash. It started after using cottonelle wipes. The rash started as uncomfortable but not itchy. Now she notices that she has some bumps. The bumps have started to drain. She has been with her current sexual partner for 9 months. Denies dysuria but has discomfort when urine hits her vulva. Patient hasn't tried anything other than vaseline (as a barrier cream) to make it better. OB History T0 L2 SAB0 IAB0 Ectopic0 Multiple0 Live Births0 Principal Clerk History LMP: 09/29/2021, Having periods Age at Menarche: Age at First : Age at Menopause: Principal Clerk History Comments: Sexual Activity: Yes; Male Contraception: No contraception data on record PAST MEDICAL HISTORY Diagnosis Date Hypothyroid Left cervical lymphadenopathy 01/04/2015 Thyroid with heterogeneity but no nodules on US in 01/2015. Melanoma in situ (HCC) Right Rib cage Migraines History reviewed. No pertinent surgical history. FAMILY HISTORY Problem Relation Age of Onset Hypertension Mother Thyroid Mother Hypertension Sister Thyroid Sister Thyroid Sister Thyroid Sister Breast Cancer No Family History Ovarian cancer No Family History Uterine Cancer No Family History Social History Tobacco Use Smoking status: Never Smokeless tobacco: Never Vaping Use Vaping Use: Never used Substance Use Topics Drug use: No Current Outpatient Medications Medication Sig levothyroxine (SYNTHROID) 100 mcg tablet Take 1 tablet by mouth once daily. atorvastatin (LIPITOR) 20 mg tablet Take 1 tablet by mouth once daily. cholecalciferol, vitamin D3, (VITAMIN D3) 100 mcg (4,000 unit) cap Take 1 capsule by mouth once daily. loratadine 10 mg cap Take 1 tablet by mouth once daily. magnesium oxide 400 mg magnesium cap Take 1 tablet by mouth daily at bedtime. montelukast (SINGULAIR) 10 mg tablet Take 10 mg by mouth once daily. triamcinolone acetonide (NASACORT AQ) 55 mcg nasal inhaler Use 1 Oelrichs in each nostril twice daily. (Patient not taking: Reported on 10/15/2021) No current facility-administered medications for this visit. Allergies As of Date: 10/15/2021 Allergen Noted Reaction NSAIDS (NON-STEROIDAL ANTI-INFLAM*10/12/2017 Unknown Fully Assessed 10/15/2021 Allergies and current medication updated:Yes EXAM: BP 132/88 Wt 179 lb 6.4 oz (81.4kg) LMP 09/29/2021 GENERAL: pleasant, female in no apparent distress PELVIC: external genitalia with lesions on inferior vulva - small ulcers (5mm or less) and papules, lesions mildly tender to touch, normal Bartholin's glands, urethra, [place]'s glands, normal appearing perineal body and perianal region ASSESSMENT AND PLAN: 45yo female with vulvar lesions Suspect HSV or molluscum contagiosum - discussed with patient & all questions answered HSV vulvar swab & antibodies ordered Plan of care pending HSV testing Medical Decision Making: Problems: Moderate: New problem with uncertain prognosis Data: Unique source(s) for external note(s) reviewed: 1 Unique test(s) ordered: 2 Risk: Low: Low risk from testing/treatment Medical Decision Making Level: 4 - Moderate Kanwal Vasquez MD documented in this encounter [facility] 12-24-2020 Note HNO ID: [id number] Author: RT Daly(R) Service: Radiology Author Type: Technologist Type: Progress Notes Filed: 12/24/2020 5:57 PM Note Text: Radiology Service Progress Note PATIENT NAME: Elise Kim DATE OF SERVICE: December 24, 2020 TIME: 5:57 PM PATIENT IDENTITY VERIFICATION COMPLETED USING TWO (2) IDENTIFIERS: Name and Date of confirmed by patient verbally. FALL SCREENING: Has the patient had 2 falls in the last year or 1 fall with injury or currently using an Ambulatory Assistive Device (Walker, Cane, Wheelchair, Crutches, etc.)? No PATIENT GENDER DATA: Female. status: : No status: NO. PATIENT RELEVANT IMPLANT DATA REVIEWED: Yes RADIOLOGY DEPARTMENT: Mammography PERIPHERAL IV DATA: Not applicable SIGNED BY: RT Daly(R) December 24, 2020 5:57 PM [facility] documented as of this encounter (statuses as of 10/15/2021) [facility] History of Past illness Narrative* Problem Noted Date Resolved Date Left cervical lymphadenopathy 01/04/2015 Overview: Thyroid with heterogeneity but no nodules on US in 01/2015. documented as of this encounter (statuses as of 10/15/2021) [facility] History of Past illness Narrative* Problem Noted Date Resolved Date Left cervical lymphadenopathy 01/04/2015 Overview: Thyroid with heterogeneity but no nodules on US in 01/2015. documented as of this encounter (statuses as of 10/16/2021) [facility] History of Past illness Narrative* Problem Noted Date Resolved Date Left cervical lymphadenopathy 01/04/2015 Overview: Thyroid with heterogeneity but no nodules on US in 01/2015. documented as of this encounter (statuses as of 10/16/2021) [facility] History of Past illness Narrative* Problem Noted Date Resolved Date Left cervical lymphadenopathy 01/04/2015 Overview: Thyroid with heterogeneity but no nodules on US in 01/2015. documented as of this encounter (statuses as of 10/18/2021) [address]2015 History of Past illness Narrative* Problem Noted Date Resolved Date Left cervical lymphadenopathy 01/04/2015 Overview: Thyroid with heterogeneity but no nodules on US in 01/2015. documented as of this encounter (statuses as of 10/22/2021) [address]2015 History of Past illness Narrative* Problem Noted Date Resolved Date Left cervical lymphadenopathy 01/04/2015 Overview: Thyroid with heterogeneity but no nodules on US in 01/2015. documented as of this encounter (statuses as of 11/29/2021) [facility] History of Past illness Narrative* Problem Noted Date Resolved Date Left cervical lymphadenopathy 01/04/2015 Overview: Thyroid with heterogeneity but no nodules on US in 01/2015. documented as of this encounter (statuses as of 12/02/2021) [facility] History of Past illness Narrative* Problem Noted Date Resolved Date Left cervical lymphadenopathy 01/04/2015 Overview: Thyroid with heterogeneity but no nodules on US in 01/2015. documented as of this encounter (statuses as of 12/17/2021) [facility] History of Past illness Narrative* Problem Noted Date Resolved Date Left cervical lymphadenopathy 01/04/2015 Overview: Thyroid with heterogeneity but no nodules on US in 01/2015. documented as of this encounter (statuses as of 04/04/2022) [facility] History of Past illness Narrative* Problem Noted Date Resolved Date Left cervical lymphadenopathy 01/04/2015 Overview: Thyroid with heterogeneity but no nodules on US in 01/2015. documented as of this encounter (statuses as of 04/10/2022) [address]2015 History of Past illness Narrative* Problem Noted Date Resolved Date Left cervical lymphadenopathy 01/04/2015 Overview: Thyroid with heterogeneity but no nodules on US in 01/2015. documented as of this encounter (statuses as of 04/15/2022) [address]2015 History of Past illness Narrative* Problem Noted Date Resolved Date Left cervical lymphadenopathy 01/04/2015 Overview: Thyroid with heterogeneity but no nodules on US in 01/2015. documented as of this encounter (statuses as of 04/24/2022) [facility] History of Past illness Narrative* Problem Noted Date Resolved Date Left cervical lymphadenopathy 01/04/2015 Overview: Thyroid with heterogeneity but no nodules on US in 01/2015. documented as of this encounter (statuses as of 04/29/2022) [address] History of Past illness Narrative* Problem Noted Date Diagnosed Date Resolved Date Left cervical lymphadenopathy 01/04/2015 09/17/2020 Overview: Thyroid with heterogeneity but no nodules on US in 01/2015. documented as of this encounter (statuses as of 12/18/2022) [address] History of Past illness Narrative* Problem Noted Date Diagnosed Date Resolved Date Left cervical lymphadenopathy 01/04/2015 09/17/2020 Overview: Thyroid with heterogeneity but no nodules on US in 01/2015. documented as of this encounter (statuses as of 01/12/2023) [facility] note* Diagnosis Vulvar lesion- Primary Other specified noninflammatory disorder of vulva and perineum 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 [facility] [place] [facility] Diagnosis Encounter for gynecological examination (general) (routine) without abnormal findings- Primary Dense breast tissue Encounter for screening mammogram for malignant neoplasm of breast Other screening mammogram Special screening for malignant neoplasms, colon Screening for cervical cancer Screening for malignant neoplasm of the cervix Special screening examination for human papillomavirus (HPV) [facility] [place] [facility] Diagnosis 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- Primary [facility] [place] [facility]* Diagnosis Abnormal uterine bleeding (AUB)- Primary Heart palpitations Palpitations [facility] [place] [facility]* Diagnosis DUB (dysfunctional uterine bleeding)- Primary Other disorder of menstruation and other abnormal bleeding from female genital tract [facility] [place] [facility]* Diagnosis Abnormal uterine bleeding (AUB) [facility] [place] [facility]* Diagnosis Encounter for IUD insertion- Primary Encounter for insertion of intrauterine contraceptive device Abnormal uterine bleeding Unspecified disorder of menstruation and other abnormal bleeding from female genital tract [facility] [place] [facility]* Diagnosis Dense breast tissue Encounter for screening mammogram for malignant neoplasm of breast Other screening mammogram documented in this encounter [facility] for referral (narrative)* Outpatient Procedure (Routine) - Pending Review Specialty Diagnoses / Procedures Referred By Denis t Referred To Contact [facility] Diagnoses Special screening for malignant neoplasms, colon Procedures COLONOSCOPY SCREENING COLONOSCOPY FLX DX W/COLLJ SPEC WHEN Kanwal Morales MD [address] [place] [address] [facility] [address] [place] [address] Referral ID Status Reason Start Date Expiration Date Visits Requested Visits Authorized [id number] Pending Review Auto-Generat ed Referral 11/29/2021 11/29/2022 1 1 * Diagnostic Procedure Only (Routine) - Pending Review Specialty Diagnoses / Procedures Referred By Denis t Referred To Contact [facility] Diagnoses Dense breast tissue Encounter for screening mammogram for malignant neoplasm of breast Procedures ELVIS SCREENING W PEBBLES SCREENING DIGITAL BREAST TOMOSYNTHESIS BI SCREENING MAMMOGRAPHY BI 2-VIEW BREAST INC CAD Kanwal Vasquez MD [address] [place] [address] [facility] [address] [place] [address] Referral ID Status Reason Start Date Expiration Date Visits Requested Visits Authorized [id number] Pending Review Auto-Generat ed Referral 11/29/2021 12/29/2022 1 1 [facility] for referral (narrative)* Outpatient Procedure (Routine) - Pending Review Specialty Diagnoses / Procedures Referred By Denis gilliland Referred To Contact [facility] Diagnoses Abnormal uterine bleeding (AUB) Procedures INSERT INTRAUTERINE DEVICE LEVONORGESTREL IU 52MG 5 YR INSERT INTRAUTERINE DEVICE Kanwal Vasquez MD [address] [place] [address] [facility] [address] [place] [address] Referral ID Status Reason Start Date Expiration Date Visits Requested Visits Authorized [id number] Pending Review Auto-Generat ed Referral 04/04/2022 04/04/2023 1 1 * Diagnostic Procedure Only (Routine) - Pending Review Specialty Diagnoses / Procedures Referred By Denis t Referred To Contact [facility] Diagnoses Abnormal uterine bleeding (AUB) Procedures US FEMALE PELVIS TRANSVAG US TRANSVAGINAL Kanwal Vasquez MD [address] [place] [address] [facility] Referral ID Status Reason Start Date Expiration Date Visits Requested Visits Authorized [id number] Pending Review Auto-Generat ed Referral 04/04/2022 05/04/2023 1 1 * Diagnostic Procedure Only (Routine) - Authorized Specialty Diagnoses / Procedures Referred By Denis t Referred To Contact [facility] Diagnoses Abnormal uterine bleeding (AUB) Procedures PELVIC US I US PELVIC NONOBSTETRIC REAL-TIME IMAGE COMPLETE Kanwal Vasquez MD [address] [place] [address] [facility] [address] [place] [address] Referral ID Status Reason Start Date Expiration Date Visits Requested Visits Authorized [id number] Authorized Auto-Generat ed Referral 04/04/2022 04/04/2023 1 1 [facility] for referral (narrative)* Diagnostic Procedure Only (Routine) - Closed Specialty Diagnoses / Procedures Referred By Denis t Referred To Contact [facility] Diagnoses Dense breast tissue Encounter for screening mammogram for malignant neoplasm of breast Procedures ELVIS SCREENING W PEBBLES SCREENING DIGITAL BREAST TOMOSYNTHESIS BI SCREENING MAMMOGRAPHY BI 2-VIEW BREAST INC CAD Kanwal Vasquez MD [address] [place] [address] [facility] [address] [place] [address] Referral ID Status Reason Start Date Expiration Date V isits Requested Visits Authorized [id number] Closed Auto-Generate d Referral 11/29/2021 12/29/2022 1 1 [facility] for visit Narrative* Diagnostic Procedure Only (Routine) - Closed Specialty Diagnoses / Procedures Referred By Denis t Referred To Contact [facility] Diagnoses Abnormal uterine bleeding (AUB) Procedures PELVIC US I US PELVIC NONOBSTETRIC REAL-TIME IMAGE COMPLETE Kanwal Vasquez MD [address] [place] [address] [facility] [address] [place] [address] Referral ID Status Reason Start Date Expiration Date V isits Requested Visits Authorized [id number] Closed Auto-Generate d Referral 04/04/2022 04/04/2023 1 1 [facility] Diagnostic Procedure Only (Routine) - Closed Specialty Diagnoses / Procedures Referred By Contac t Referred To Contact [facility] Diagnoses Dense breast tissue Encounter for screening mammogram for malignant neoplasm of breast Procedures ELVIS SCREENING W PEBBLES SCREENING DIGITAL BREAST TOMOSYNTHESIS BI SCREENING MAMMOGRAPHY BI 2-VIEW BREAST INC Kanwal Irizarry MD [address] [place] [address] [facility] [address] [place] [address] Referral ID Status Reason Start Date Expiration Date V isits Requested Visits Authorized [id number] Closed Auto-Generate d Referral 11/29/2021 12/29/2022 1 1 [facility] Summary Purpose Family History No Family History Records FoundNo Family History Records FoundNo Family History Records FoundNo Family History Records FoundNo Family History Records FoundNo Family History Records FoundNo Family History Records FoundNo Family History Records Found Advance Directives Documents on File Type Date Recorded Patient Senior Project Controls Specialist Expl anation Advance Directives and Living Will Power of Technology Methodology Consultant Medications Administered Section Inactive Administered Medications - up to 3 most recent administrations Medication Order MAR Action Action Date Dose Rate Site levonorgestrel 20 mcg/24 hours (8 yrs) 52 mg 1 Each intrauterine device (MIRENA) 1 Each, INTRAUTERINE, ONCE (UP TO 30 DAYS AMB), 1 dose, On [place] 04/24/22 at 1400, Hazardous Potential Reproductive Risk Drug: Use appropriate PPE. Given 04/24/2022 2:30 PM EST 1 Each Additional Source Comments INFORMATION SOURCE (unrecogn ized section and content) DATE CREATED AUTHOR AUTHOR'S ORGANIZ ATION 09/10/2017 [facility] DATE CREATED AUTHOR AUTHOR'S ORGANIZ ATION 04/19/2019 [facility] DATE CREATED AUTHOR AUTHOR'S ORGANIZ ATION 05/04/2019 [facility] DATE CREATED AUTHOR AUTHOR'S ORGANIZ ATION 05/14/2019 [facility] DATE CREATED AUTHOR AUTHOR'S ORGANIZ ATION 12/03/2020 [facility] DATE CREATED AUTHOR AUTHOR'S ORGANIZ ATION 12/28/2020 [facility] DATE CREATED AUTHOR AUTHOR'S ORGANIZ ATION 12/19/2022 [facility] Source Comments (unrecognize d section and content) In the event this informatio n is protected by the Federal Confidentiality of Alcohol and Drug Abuse Patient Records regulations: The Federal rules restrict any use of the information to criminally investigate or prosecute any alcohol or drug abuse patient.[facility] the event this information is protected by the Federal Confidentiality of Alcohol and Drug Abuse Patient Records regulations: The Federal rules restrict any use of the information to criminally investigate or prosecute any alcohol or drug abuse patient.[facility] the event this information is protected by the Federal Confidentiality of Alcohol and Drug Abuse Patient Records regulations: The Federal rules restrict any use of the information to criminally investigate or prosecute any alcohol or drug abuse patient.[facility] the event this information is protected by the Federal Confidentiality of Alcohol and Drug Abuse Patient Records regulations: The Federal rules restrict any use of the information to criminally investigate or prosecute any alcohol or drug abuse patient.[facility] the event this information is protected by the Federal Confidentiality of Alcohol and Drug Abuse Patient Records regulations: The Federal rules restrict any use of the information to criminally investigate or prosecute any alcohol or drug abuse patient.[facility] the event this information is protected by the Federal Confidentiality of Alcohol and Drug Abuse Patient Records regulations: The Federal rules restrict any use of the information to criminally investigate or prosecute any alcohol or drug abuse patient.[facility] the event this information is protected by the Federal Confidentiality of Alcohol and Drug Abuse Patient Records regulations: The Federal rules restrict any use of the information to criminally investigate or prosecute any alcohol or drug abuse patient.[facility] the event this information is protected by the Federal Confidentiality of Alcohol and Drug Abuse Patient Records regulations: The Federal rules restrict any use of the information to criminally investigate or prosecute any alcohol or drug abuse patient.[facility] the event this information is protected by the Federal Confidentiality of Alcohol and Drug Abuse Patient Records regulations: The Federal rules restrict any use of the information to criminally investigate or prosecute any alcohol or drug abuse patient.[facility] the event this information is protected by the Federal Confidentiality of Alcohol and Drug Abuse Patient Records regulations: The Federal rules restrict any use of the information to criminally investigate or prosecute any alcohol or drug abuse patient.[facility] the event this information is protected by the Federal Confidentiality of Alcohol and Drug Abuse Patient Records regulations: The Federal rules restrict any use of the information to criminally investigate or prosecute any alcohol or drug abuse patient.[facility] the event this information is protected by the Federal Confidentiality of Alcohol and Drug Abuse Patient Records regulations: The Federal rules restrict any use of the information to criminally investigate or prosecute any alcohol or drug abuse patient.[facility] the event this information is protected by the Federal Confidentiality of Alcohol and Drug Abuse Patient Records regulations: The Federal rules restrict any use of the information to criminally investigate or prosecute any alcohol or drug abuse patient.[facility] the event this information is protected by the Federal Confidentiality of Alcohol and Drug Abuse Patient Records regulations: The Federal rules restrict any use of the information to criminally investigate or prosecute any alcohol or drug abuse patient.[facility] the event this information is protected by the Federal Confidentiality of Alcohol and Drug Abuse Patient Records regulations: The Federal rules restrict any use of the information to criminally investigate or prosecute any alcohol or drug abuse patient.[facility] the event this information is protected by the Federal Confidentiality of Alcohol and Drug Abuse Patient Records regulations: The Federal rules restrict any use of the information to criminally investigate or prosecute any alcohol or drug abuse patient.[facility] MemorialIn the event this information is protected by the Federal Confidentiality of Alcohol and Drug Abuse Patient Records regulations: The Federal rules restrict any use of the information to criminally investigate or prosecute any alcohol or drug abuse patient.[facility] Reason for Visit (unrecogniz ed section and content) Reason Comments Contraception Opened In Error Reason Comments Discussion Reason Comments Results Reason Comments Well Woman Reason Comments CANCELLED REQUEST Reason Comments Menstrual Problem Reason Comments DUB Reason Onset Date Comments Insertion Of IUD 04/24/2022 Endometrial Bio psy Specialty Diagnoses / Procedures Referred By Denis gilliland Referred To Contact [facility] Diagnoses Abnormal uterine bleeding (AUB) Procedures INSERT INTRAUTERINE DEVICE LEVONORGESTREL IU 52MG 5 YR INSERT INTRAUTERINE DEVICE Kanwal Vasquez MD [address] [place] [address] [facility] [address] [place] [address] Referral ID Status Reason Start Date Expiration Date V isits Requested Visits Authorized [id number] Closed Auto-Generate d Referral 04/04/2022 04/04/2023 1 1 Reason Onset Date Comments Refill Request 04/29/2022 Care Teams (unrecognized sec tion and content) Cafe Lead Relationship Specialty Start Date End Date Kenny aPtel, PUBLIC HEALTH SERVICE OFFICER.[employer] [address] [facility] [place] [phone] PCP - General Family Practice 09/17/20 Cafe Lead Relationship Specialty Start Date End Date Kenny Patel, PUBLIC HEALTH SERVICE OFFICER.[employer] [address] [place] [address] PCP - General Family Practice 09/17/20 Cafe Lead Relationship Specialty Start Date End Date Kenny Patel, PUBLIC HEALTH SERVICE OFFICER[employer] [address] [place] [address] PCP - General Family Practice 09/17/20 Cafe Lead Relationship Specialty Start Date End Date Kenny Patel, PUBLIC HEALTH SERVICE OFFICER[employer] [address] [facility] [place] [phone] PCP - General Family Practice 09/17/20 Cafe Lead Relationship Specialty Start Date End Date Kenny Patel, PUBLIC HEALTH SERVICE OFFICER[employer] [address] [place] [address] PCP - General Family Practice 09/17/20 Cafe Lead Relationship Specialty Start Date End Date Kenny Patel, PUBLIC HEALTH SERVICE OFFICER[employer] [address] [place] [address] PCP - General Family Practice 09/17/20 Cafe Lead Relationship Specialty Start Date End Date Kenny Patel, PUBLIC HEALTH SERVICE OFFICER[employer] [address] [place] [address] PCP - General Family Medicine 09/17/20 Cafe Lead Relationship Specialty Start Date End Date Kenny Patel, PUBLIC HEALTH SERVICE OFFICER[employer] [address] [place] [address] PCP - General Family Medicine 09/17/20 Cafe Lead Relationship Specialty Start Date End Date Kenny Patel, PUBLIC HEALTH SERVICE OFFICER[employer] [address] [place], [place] [phone] PCP - General Family Medicine 09/17/20 Cafe Lead Relationship Specialty Start Date End Date Kenny Patel, PUBLIC HEALTH SERVICE OFFICER.[employer] [address] [facility] [place] [phone] PCP - General Family Medicine 09/17/20 Cafe Lead Relationship Specialty Start Date End Date Kenny Patel, PUBLIC HEALTH SERVICE OFFICER[employer] [address] [place], [place] [phone] PCP - General Family Medicine 09/17/20 Cafe Lead Relationship Specialty Start Date End Date Kenny Patel, PUBLIC HEALTH SERVICE OFFICER[employer] [address] [place], [place] [phone] PCP - General Family Medicine 09/17/20 Cafe Lead Relationship Specialty Start Date End Date Kenny Patel, PUBLIC HEALTH SERVICE OFFICER[employer] [address] [place], [place] [phone] PCP - General Family Medicine 09/17/20 Cafe Lead Relationship Specialty Start Date End Date Kenny Patel, PUBLIC HEALTH SERVICE OFFICER[employer] [address] [place], [place] [phone] PCP - General Family Medicine 09/17/20 Cafe Lead Relationship Specialty Start Date End Date Kenny Patel, PUBLIC HEALTH SERVICE OFFICER[employer] [address] [place], [place] [phone] PCP - General Family Medicine 09/17/20 Cafe Lead Relationship Specialty Start Date End Date Kenny Patel, PUBLIC HEALTH SERVICE OFFICER[employer] [address] [place], [place] [phone] PCP - General Family Medicine 09/17/20 FOR RECORDS PERTAINING TO PATIENTS WHO ARE OR HAVE BEEN ENROLLED IN A CHEMICAL DEPENDENCY/SUBSTANCEABUSE PROGRAM, SOME INFORMATION MAY BE OMITTED. This clinical summary was aggregated from multiple sources. Caution should be exercised in using it in the provision of clinical care. This summary normalizes information from multiple sources, and as a consequence, information in this document may materially change the coding, format and clinical context of patient data. In addition, data may be omitted in some cases. CLINICAL DECISIONS SHOULD BE BASED ON THE PRIMARY CLINICAL RECORDS. [facility]. provides no warranty or guarantee of the accuracy or completeness of information in this document.
[2023-04-06 14:09] LABS: Anion Gap 3 (5-15); BUN 9 mg/dL (7-18); BUN/Creat Ratio 9.1 RATIO (10-20); Chloride 109 mmol/L (98-107); Creatinine, Serum 0.99 mg/dL (0.55-1.02); EST Glomerular Filtration Rate 64 mL/min (>60); Est Glom Filt Rate - Afr Amer 78 mL/min (>60); Free T3 2.3 pg/mL (2.18-3.98); Glucose 98 mg/dL (74-106); Potassium 3.9 mmol/L (3.5-5.1); Sodium Level 137 mmol/L (136-145); T4 Free Direct 1.07 ng/dL (0.76-1.46); Thyroid Stim Hormone (TSH) 0.25 uIU/mL (0.358-3.74)
== END | disposition home or self-care (01) ==
PROVIDERS: PCP Nurse Practitioner; Referring Provider Nurse Practitioner Gerontology; Visit Provider Nurse Practitioner Gerontology
DX: E06.3 Autoimmune thyroiditis (principal); I10 Essential (primary) hypertension
CPT/HCPCS: 36415; 80048; 84439; 84443; 84481

== ENCOUNTER → 2023-05-04 | Outpatient (CLI) | payer BC, SELFPAY ==
[2023-05-04 12:02] LABS: Thyroid Stim Hormone (TSH) 0.66 uIU/mL (0.358-3.74)
== END | disposition home or self-care (01) ==
PROVIDERS: PCP Nurse Practitioner; Visit Provider Nurse Practitioner
DX: E03.9 Hypothyroidism, unspecified (principal)
CPT/HCPCS: 36415; 84443

== ENCOUNTER → 2023-05-06 | Outpatient (CLI) | payer BC, SELFPAY | END | disposition home or self-care (01) | PROVIDERS: PCP Nurse Practitioner; Visit Provider Nurse Practitioner | DX: N30.90 Cystitis, unspecified without hematuria (principal); R35.0 Frequency of micturition | CPT/HCPCS: 87086 ==

== ENCOUNTER → 2023-06-08 | Outpatient (CLI) | payer BC, SELFPAY | END | disposition home or self-care (01) | PROVIDERS: PCP Nurse Practitioner; Visit Provider Nurse Practitioner | DX: Z00.00 Encounter for general adult medical examination without abnormal findings (principal) ==

== ENCOUNTER → 2023-06-08 | Outpatient (CLI) | payer BC, SELFPAY ==
[2023-06-08 17:36] LABS: Thyroid Stim Hormone (TSH) 3.02 uIU/mL (0.358-3.74)
== END | disposition home or self-care (01) ==
PROVIDERS: PCP Nurse Practitioner; Visit Provider Nurse Practitioner
DX: E03.8 Other specified hypothyroidism (principal); E06.3 Autoimmune thyroiditis
CPT/HCPCS: 36415; 84443

== ENCOUNTER → 2023-07-20 | Outpatient (CLI) | payer BC, SELFPAY ==
[2023-07-20 14:19] LABS: T4 Free Direct 1.11 ng/dL (0.76-1.46); Thyroid Stim Hormone (TSH) 0.77 uIU/mL (0.358-3.74)
[2023-07-20 15:27] LABS: Vitamin B12 436 pg/mL (211-911); Vitamin D,25 Hydroxy 36.2 ng/mL
== END | disposition home or self-care (01) ==
LOC: LAB 12:47
PROVIDERS: PCP Nurse Practitioner; Referring Provider Internal Medicine Endocrinology, Diabetes & Metabolism; Visit Provider Internal Medicine Endocrinology, Diabetes & Metabolism
DX: E03.8 Other specified hypothyroidism (principal); E06.3 Autoimmune thyroiditis; K90.41 Non-celiac gluten sensitivity; E55.9 Vitamin D deficiency, unspecified
CPT/HCPCS: 36415; 82306; 82607; 84439; 84443

== ENCOUNTER → 2024-02-16 | Outpatient (CLI) | payer BC, SELFPAY ==
[2024-02-16 16:40] LABS: T4 Free Direct 0.96 ng/dL (0.76-1.46); Thyroid Stim Hormone (TSH) 0.602 uIU/mL (0.358-3.740)
== END | disposition home or self-care (01) ==
LOC: LAB 14:58
PROVIDERS: PCP Nurse Practitioner; Referring Provider Internal Medicine Endocrinology, Diabetes & Metabolism; Visit Provider Internal Medicine Endocrinology, Diabetes & Metabolism
DX: E03.8 Other specified hypothyroidism (principal); E06.3 Autoimmune thyroiditis
CPT/HCPCS: 36415; 84439; 84443

== ENCOUNTER → 2024-03-07 | Outpatient (CLI) | payer BC, SELFPAY ==
--- NOTE | 2024-03-07 12:42 | US_ITS ---
STUDY: THYROID ULTRASOUND REASON FOR EXAM: Female, 48 years old. detect thyroid nodules TECHNIQUE: Ultrasound evaluation of the thyroid was performed with real-time and static gaines-scale imaging. COMPARISON: None. FINDINGS: RIGHT LOBE: The right lobe of the thyroid gland measures 5.2 x 0.9 x 1.4 cm. There is a heterogeneous echotexture. There are no demonstrated solid, cystic or complex lesions. LEFT LOBE: The left lobe of the thyroid gland measures 3.7 x 1.2 x 1.2 cm. There is a heterogeneous echotexture. There are no demonstrated solid, cystic or complex lesions. ISTHMUS: The isthmus measures 2 mm thick. . The regional lymph nodes are normal. US/Thyroid IMPRESSION: Thyroiditis but no dominant nodule. Electronically Signed: Kme Marie MD at 12:05 EST ,
== END | disposition home or self-care (01) ==
PROVIDERS: PCP Nurse Practitioner; Referring Provider Internal Medicine Endocrinology, Diabetes & Metabolism; Visit Provider Internal Medicine Endocrinology, Diabetes & Metabolism
DX: E04.1 Nontoxic single thyroid nodule (principal)
CPT/HCPCS: 76536

== ENCOUNTER → 2024-09-26 | Outpatient (CLI) | payer BC, SELFPAY ==
[2024-09-26 13:19] LABS: Follicle Stimulating Hormone 5.5 mIU/mL
== END | disposition home or self-care (01) ==
LOC: LAB 12:00
PROVIDERS: PCP Nurse Practitioner; Referring Provider Internal Medicine Endocrinology, Diabetes & Metabolism; Visit Provider Internal Medicine Endocrinology, Diabetes & Metabolism
DX: E03.8 Other specified hypothyroidism (principal); E06.3 Autoimmune thyroiditis; N91.5 Oligomenorrhea, unspecified
CPT/HCPCS: 36415; 82670; 83001; 83002; 84439; 84443